=== PATIENT | female | born 1995 | race Caucasian/White ===

== ENCOUNTER 2017-01-01 07:46 | Inpatient (IN) | payer OTHER ==
[2017-01-01] MEDS ORDERED: Nalbuphine Inj 20 MG/ML Ampule IVP PRN ×2 (08:29→16:35)
[2017-01-01] MEDS ORDERED: ePHEDrine Inj 5 MG in Normal Saline Flush 1 ML IVP PRN (08:29)
[2017-01-01] MEDS ORDERED: LIDOCAINE W/ SODIUM BICARB 0.5 ML SYR SUBD PRN (08:29)
[2017-01-01] MEDS ORDERED: ONDANSETRON 4 MG/2 ML VIAL IVP PRN ×2 (08:29→16:35)
[2017-01-01] MEDS ORDERED: CALCIUM CARBONATE 500 MG (TUMS) CHEWABLE TABLET PO PRN ×2 (08:29→16:35)
[2017-01-01] MEDS ORDERED: METHYLERGONOVINE MALEATE 0.2 MG/1 ML VIAL IM PRN ×2 (08:29→16:35)
[2017-01-01] MEDS ORDERED: CefOXitin Inj 2 GM in Sodium Chloride 0.9% 100 ML IV PRN (08:29)
[2017-01-01] MEDS ORDERED: Carboprost Inj 250 MCG/ML AMP IM PRN ×2 (08:29→16:35)
[2017-01-01] MEDS ORDERED: Metoclopramide Inj 10 MG/2 ML VIAL IV PRN (08:29)
[2017-01-01] MEDS ORDERED: CITRIC ACID/SODIUM CITRATE 30 ML CUP PO PRN (08:29)
[2017-01-01] MEDS ORDERED: OXYTOCIN 10 UNIT/1 ML IM PRN (08:29)
[2017-01-01] MEDS ORDERED: NORMAL SALINE 10 ML SYRINGE FLUSH IVP PRN ×2 (08:29→16:35)
[2017-01-01] MEDS ORDERED: Phenylephrine Inj 50 MCG in Normal Saline Flush 0.5 ML IVP PRN (08:29)
[2017-01-01] MEDS ORDERED: MISOPROSTOL 200 MCG TABLET RECTAL PRN (08:29)
[2017-01-01] MEDS ORDERED: Naloxone Inj 0.01 MG in Normal Saline Flush 1 ML IVP PRN (08:29)
[2017-01-01] MEDS ORDERED: diphenhydrAMINE 50 MG/1 ML VIAL IVP PRN ×2 (08:29→16:35)
[2017-01-01] MEDS ORDERED: BUTORPHANOL TARTRATE 2 MG/1 ML VIAL IVP PRN (08:29)
[2017-01-01] MEDS ORDERED: NALOXONE 0.4 MG/1 ML VIAL IVP PRN (08:29)
[2017-01-01] MEDS ORDERED: Famotidine Inj 20 MG in Normal Saline Flush 10 ML IVP PRN ×4 (08:29)
[2017-01-01] MEDS ORDERED: Lidocaine 1% 10 MG/ML - 20 ML VIAL SUBCUT PRN (08:29)
[2017-01-01] MEDS ORDERED: TERBUTALINE SULFATE 1 MG/1 ML SDV SUBCUT PRN (08:29)
[2017-01-01] MEDS ORDERED: Oxytocin 20 Units + LR 1,000 ML IV SCH ×3 (08:30→16:35)
[2017-01-01] MEDS: Lactated Ringers-OB Dept 1,000 ML PRIMARY IV SCH ×2 (08:31→19:39)
[2017-01-01] MEDS ORDERED: Sodium Chloride 0.9% 100 ML IV ONE (08:31)
[2017-01-01] MEDS ORDERED: PENICILLIN G POTASSIUM 5,000,000 UNIT SDV IV ONE (08:31)
[2017-01-01] MEDS: fentaNYL Inj 100 MCG/2 ML VIAL IV PRN ×3 (08:40→15:27)
[2017-01-01 08:48] LABS: HEMATOCRIT 36.6 % (37.0-47.0); HEMOGLOBIN 12.5 g/dL (12.0-16.0); MEAN CORPUSCULAR HEMOGLOBIN 27.8 PG (27-31); MEAN CORPUSCULAR HGB CONC 34.2 g/dL (33-37); MEAN CORPUSCULAR VOLUME 81.3 FL (81-99); MEAN PLATELET VOLUME 9.3 FL (7.4-12.2); RED BLOOD COUNT 4.5 10^6/uL (4.20-5.40)
--- NOTE | 2017-01-01 09:20 | DI ---
US OB POSITION,01/01/2017 8:22 AM: Clinical History: Verify position. Previous Exam: None at this facility. Findings: Multiple grayscale and color Doppler sonographic images are obtained through the pelvis. A total of 4 images are obtained demonstrating a live fetus in vertex presentation. Detected Doppler heart tones measured 146 beats per minute. The spine lies to the maternal left. Impression: Single live intrauterine gestation in vertex presentation with the spine to the maternal left.
[2017-01-01 09:53] LABS: URINE SAMPLE TYPE CLEAN CATCH URINE
[2017-01-01 09:54] LABS: AMPHETAMINE SCREEN NEGATIVE (NEG); CANNABINOID SCREEN,URINE POSITIVE (NEG); COCAINE SCREEN NEGATIVE (NEG); METHADONE URINE SCREEN NEGATIVE (NEG); METHAMPHETAMINES SCREEN,URINE NEGATIVE (NEG); OPIATE SCREEN,URINE NEGATIVE (NEG); URINE SPECIFIC GRAVITY - MAN 1.026
[2017-01-01] MEDS ORDERED: BUPIVACAINE SPINAL 7.5 MG/1 ML - 2 ML IV ONE (10:01)
--- NOTE | 2017-01-01 10:27 | CRNA.PROCE ---
Central Neuraxis Block Placemt - - Type of Block: Subarachnoid, Epidural Reason for Block: Analgesia Moniters Used During Block: SPO2, NIBP Positioning: Sitting Skin Prep Used: ChloroPrep Draped: Yes Skin Infiltration - Enter Amount Used in Comment Field: 1% Xylocaine (mL): Yes ( skin wheal) Spinal Needle Used: 18 Hustead 80 mm Local Anesthetic - Enter Amount Used in Comment Field: 0.75 % Bupivacaine with Dextrose (ml): Yes (6mg in 1ml csf), 1.5 % Xylocaine with Epinephrine 1:200,000 (mL): Yes (5ml) Number of Centimeters Catheter Threaded: 4 Bioclusive Dressing Applied: Yes - - Additional Details: Combined spinal epidural. 27ga spinal zaki passed through the 18 ga ten, pos CSF
--- NOTE | 2017-01-01 10:58 | OB.PROGRES ---
Date and Time of Service: 01/01/17 @ 0900 Interval History: Ms. Gill is a 21 yo at 41 3/7 weeks who is followed by [facility] in [place]. [place] [facility] [place] last noc c/o contractions, and her cervix was 2 cm by pt report. She was discharged home. The pt states that she contracted all noc, lost her mucus plug and then decided to present to [place] for check. She is unsure if she is leaking any fluid. She denies any vaginal bleeding. She states that her baby has been moving normally. It appears as though her has been uncomplicated, with negative gc/chlamydia testing, non-reactive RPR, negative HIV. O+ blood type. Her 1 hour glucola was 134. Her GBS status was positive. The pt's last was complicated by pre-eclampsia and delivery at 39 weeks (vacuum extraction) at [facility]. Baby girl weighed 7#8oz. The pt reports that she did take baby ASA during her current , but stopped on 12/09/16. Objective - Cervical Exam Cervical Exam: /-1 Naplate: every 5 minutes, palpating hard. Heart Rate: 135, moderate variability, + accels. Heart Rate Interpretation Category: Category I - Labs CBC and BMP: 01/01/17 08:41 Labs - Last 24 Hours: Laboratory Results 01/01/17 01/01/17 Range/Units 08:41 09:34 WBC 19.37 H (4.8-10.8) 10^3/uL RBC 4.50 (4.20-5.40) 10^6/uL Hgb 12.5 (12.0-16.0) g/dL Hct 36.6 L (37.0-47.0) % MCV 81.3 (81-99) FL MCH 27.8 (27-31) PG MCHC 34.2 (33-37) g/dL RDW Std Deviation 46.1 (39-50) fL RDW Coeff of Lauren 15.7 H (11.5-14.5) % Plt Count 382 H (140-350) 10*3/uL MPV 9.3 (7.4-12.2) FL Ur Collection Type Clean catch urine U Specif Grav (Refrac) 1.026 Urine Opiates Screen Negative (NEG) Ur Buprenorphine Negative (NEG) Ur Oxycodone Screen Negative (NEG) Urine Methadone Screen Negative (NEG) Ur Propoxyphene Screen Negative (NEG) Barbiturate Screen Negative (NEG) U Tricyclic Antidepress Negative (NEG) Phencyclidine Screen Negative (NEG) Amphetamines Screen Negative (NEG) U Methamphetamines Scrn Negative (NEG) Benzodiazepines Screen Negative (NEG) Cocaine Screen Negative (NEG) U Marijuana (THC) Screen Positive H (NEG) Assessment and Plan - Patient Problems (1) Post-dates Current Visit: Yes Status: Acute Qualifiers: Post-term type: 40-42 weeks gestation Qualified Description: Post-term , 40-42 weeks of gestation Qualifier Code(s): (O48.0) Post-term - Assessment / Plan Additional Assessment/Plan Details: -old records reviewed from [facility]. -GBS positive per narrative from [facility], but we don't have the actual lab report. Will get this from [facility]. -pt wishing for epidural for pain control. -expectant management.
[2017-01-01] MEDS ORDERED: Sodium Chloride 0.9% vial 20 ML ONE (11:38)
[2017-01-01] MEDS ORDERED: BUPivacaine Inj 0.25% PF - 10ml vial ONE (11:38)
[2017-01-01] MEDS ORDERED: diphenhydrAMINE 25 MG CAPSULE PO PRN (16:35)
[2017-01-01] MEDS ORDERED: GLYCERIN/WITCH HAZEL 1 BOX TOPICAL PRN (16:35)
[2017-01-01] MEDS ORDERED: Methylergonovine Tab 0.2 MG TAB PO PRN (16:35)
[2017-01-01] MEDS ORDERED: BENZOCAINE/MENTHOL SPRAY 56 GM BOTTLE TOPICAL PRN (16:35)
[2017-01-01] MEDS ORDERED: OXYTOCIN 10 UNIT/1 ML IM ONE (16:35)
[2017-01-01] MEDS ORDERED: DIPH,PERTUSS,TET(ADACEL) VAC/PF 0.5 ML (Tdap) IM SCH (16:35)
[2017-01-01] MEDS ORDERED: LANOLIN HPA 40 GM TUBE TOPICAL PRN (16:35)
[2017-01-01] MEDS ORDERED: MISOPROSTOL 200 MCG TABLET RECTAL ONE (16:35)
[2017-01-01] MEDS ORDERED: ACETAMINOPHEN 325 MG TABLET PO PRN (16:35)
[2017-01-01] MEDS ORDERED: Ondansetron ODT Tab 4 MG TAB PO PRN (16:35)
[2017-01-01] MEDS: HYDROcodone-APAP 5 MG -325 MG TABLET PO PRN (17:00)
[2017-01-01] MEDS: DOCUSATE 100 MG CAPSULE PO SCH (21:17)
--- NOTE | 2017-01-01 23:27 | OB.DEL.SUM ---
Delivery Note Delivery Summary: Ms. Gill is a 21 yo at 41 3/7 weeks by 9 week u/s who is normally followed in [place] at [facility] [place]. She had presented to [facility] last noc and was discharged home. She reports that she contracted all noc and then presented to [facility] this morning in active labor. Her GBS status was noted to be positive. Penicillin was given for GBS prophylaxis. Her cervix changed from 5 cm on admission to 9 cm less than an hour later. Her contractions then spaced out. An epidural was placed for pain control and pitocin augmentation was started after her second dose of penicillin was given. On 6 mU of pitocin and and position changes, then pt finally changed from 8-9 cm and 0 station to complete and +2. She pushed over the course of 4 pushes, she delivered a viable female , over an intact perineum. Time of delivery was 1522. There was a tight nuchal and body cords, which were reduced after delivery. Baby was vigorous and crying and was thus dried, stimulated and bulb suctioned. The cord was doubly clamped by myself and cut by the grandmother of the baby. Baby was handed off to the waiting nurse. Cord blood and cord gases were obtained for analysis. The placenta delivered spontaneously and intact, with a 3 vessel cord , at 1531. With infusion of pitocin and fundal massage, the uterus firmed up nicely. The vagina and perineum were examined and no lacerations were noted. Apgars were 7 at 1 minute and 8 at 5 minutes. Baby weighed 6#13 oz and was 19 inches long. Of note, mom's urine tox screen on admit was positive for THC. Her urine specimen will be sent for confirmatory testing. - Patient Problems (1) Post-dates Current Visit: Yes Status: Acute Qualifiers: Post-term type: 40-42 weeks gestation Qualified Description: Post-term , 40-42 weeks of gestation Qualifier Code(s): (O48.0) Post-term
[2017-01-02] MEDS: IBUPROFEN 800 MG TABLET PO PRN ×2 (01:33→13:15)
[2017-01-02] MEDS: HYDROcodone-APAP 5 MG -325 MG TABLET PO PRN ×2 (02:15→07:22)
[2017-01-02 05:14] VITALS: TEMP 97.6
[2017-01-02 05:32] LABS: HEMATOCRIT 31.4 % (37.0-47.0); HEMOGLOBIN 10.2 g/dL (12.0-16.0); MEAN CORPUSCULAR HEMOGLOBIN 27.2 PG (27-31); MEAN CORPUSCULAR HGB CONC 32.5 g/dL (33-37); MEAN CORPUSCULAR VOLUME 83.7 FL (81-99); MEAN PLATELET VOLUME 9.3 FL (7.4-12.2); RED BLOOD COUNT 3.75 10^6/uL (4.20-5.40)
[2017-01-02] MEDS: DOCUSATE 100 MG CAPSULE PO SCH (08:16)
--- NOTE | 2017-01-02 08:19 | CRNA.PROGR ---
Anesthesia Note Anesthesia Progress Note: Has been ambulatory ad mahamed. Currently, sitting up in bed with baby. Discussed her course of anesthetic for MARYLOU and she has no questions or concerns at this time. She was pleased with the process. Laboratory Results 01/01/17 01/01/17 01/02/17 Range/Units 08:41 09:34 05:10 WBC 19.37 H 12.69 H (4.8-10.8) 10^3/uL RBC 4.50 3.75 L (4.20-5.40) 10^6/uL Hgb 12.5 10.2 L (12.0-16.0) g/dL Hct 36.6 L 31.4 L (37.0-47.0) % MCV 81.3 83.7 (81-99) FL MCH 27.8 27.2 (27-31) PG MCHC 34.2 32.5 L (33-37) g/dL RDW Std Deviation 46.1 47.9 (39-50) fL RDW Coeff of Lauren 15.7 H 16.0 H (11.5-14.5) % Plt Count 382 H 309 (140-350) 10*3/uL MPV 9.3 9.3 (7.4-12.2) FL Ur Collection Type Clean catch urine U Specif Grav (Refrac) 1.026 Urine Opiates Screen Negative (NEG) Ur Buprenorphine Negative (NEG) Ur Oxycodone Screen Negative (NEG) Urine Methadone Screen Negative (NEG) Ur Propoxyphene Screen Negative (NEG) Barbiturate Screen Negative (NEG) U Tricyclic Antidepress Negative (NEG) Phencyclidine Screen Negative (NEG) Amphetamines Screen Negative (NEG) U Methamphetamines Scrn Negative (NEG) Benzodiazepines Screen Negative (NEG) Cocaine Screen Negative (NEG) U Marijuana (THC) Screen Positive H (NEG) Vital Signs (24 hrs) Temp Pulse Pulse Resp BP BP Pulse Ox 01/02/17 05:13 97.6 F 76 20 122/60 99 01/01/17 21:18 97.7 F 52 L 52 L 18 119/62 99 01/01/17 16:57 98.4 F 77 18 125/66 98 01/01/17 16:15 97.6 F 70 20 111/63 97 01/01/17 16:01 97.8 F 92 18 143/66 98 01/01/17 15:46 61 134/82 99 01/01/17 15:39 98.5 F 92 18 132/92 98 01/01/17 15:00 92 141/79 100 01/01/17 14:45 81 117/101 100 01/01/17 14:30 69 131/79 100 01/01/17 14:15 65 123/80 100 01/01/17 14:00 71 133/88 99 01/01/17 13:45 65 125/69 98 01/01/17 13:30 80 126/67 97 01/01/17 13:15 62 114/70 100 01/01/17 13:00 83 132/77 100 01/01/17 12:45 98.1 F 76 118/59 100 01/01/17 12:30 75 109/74 100 01/01/17 12:15 77 90/60 100 01/01/17 12:00 98.5 F 69 20 121/81 100 01/01/17 11:45 67 18 126/73 100 01/01/17 11:30 70 125/72 99 01/01/17 11:15 73 18 125/81 100 01/01/17 11:00 81 130/74 98 01/01/17 10:45 105 H 117/71 97 01/01/17 10:30 94 18 129/67 98 01/01/17 10:00 82 91 01/01/17 09:00 84 01/01/17 08:40 97.6 F 58 L 18 135/78 100
[2017-01-02] MEDS ORDERED: FERROUS GLUCONATE 324 MG TABLET PO SCH (09:00)
[2017-01-02] MEDS ORDERED: Prenatal Multivitamin Tab 1 TAB TAB PO SCH (09:00)
--- NOTE | 2017-01-02 09:25 | OB.PROGRES ---
Subjective Post Day: 1 Pain Management: PO Souza Catheter: No Flatus: Yes Diet: Regular [place] Feeding Method: / Bottle Ambulating: Yes Objective - General General Appearance: POSITIVE: No Acute Distress, Cooperative - Cardiovacular Cardiovascular Exam: POSITIVE: RRR, No Murmur Edema: +1 Pedal Edema Extremities: Negative Ruthie's - Bilaterally - Respiratory Respiratory Exam: POSITIVE: Clear to Auscultation - Bilaterally, Breathing Non Labored - Abdomen Bowel Sounds: Present Assesstment / Plan (1) Post-dates Current Visit: Yes Status: Acute Qualifiers: Post-term type: 40-42 weeks gestation Qualified Description: Post-term , 40-42 weeks of gestation Qualifier Code(s): (O48.0) Post-term Assessment / Plan: -mild anemia noted today, will start oral iron supplementation. -routine cares. -+ THC on admit urine tox screen, pt denies use herself but possibly had some second hand exposure. DFS referral has been made. -breast feeding and supplementing with formula until her milk comes in. -possible d/c home later this afternoon.
[2017-01-02 10:50] VITALS: RESP 14
== END 2017-01-02 17:31 | disposition home or self-care (01) | DRG 774 ==
LOC: OBOP 07:46 → OBIP 08:29
PROVIDERS: ADMIT Family Medicine; ATTEND Family Medicine
PROC: 10E0XZZ Delivery of Products of Conception, External Approach (ICD-10-PCS; principal; 2017-01-01)
DX: O98.82 Other maternal infectious and parasitic diseases complicating childbirth (principal); O99.324 Drug use complicating childbirth; B95.1 Streptococcus, group B, as the cause of diseases classified elsewhere; F12.90 Cannabis use, unspecified, uncomplicated; Z3A.41 41 weeks gestation of pregnancy; Z37.0 Single live birth
CPT/HCPCS: 76815; 80305; 85027; A4216; J2210; J2405; J2540; J3010; J7050; J7120